=== PATIENT | male | born 1970 | race African-American/Black ===

== ENCOUNTER 2019-04-22 22:19 | Emergency (ER) | payer OTHER ==
[~2019-04-22] VITALS: Ht 172.7 cm; Wt 79.4 kg
[2019-04-22] MEDS ORDERED: KEFLEX500 M1 PO (22:57)
[2019-04-22 23:18] VITALS: BP 139/68
== END 2019-04-22 23:19 | disposition home or self-care (01) ==
LOC: ER 22:19
DX: S60.412A Abrasion of right middle finger, initial encounter (principal); L03.011 Cellulitis of right finger; F17.210 Nicotine dependence, cigarettes, uncomplicated; Z91.013 Allergy to seafood; X58.XXXA Exposure to other specified factors, initial encounter; Y92.89 Other specified places as the place of occurrence of the external cause; Y93.89 Activity, other specified; Y99.8 Other external cause status